=== PATIENT | female | born 1960 | race Caucasian/White ===

== ENCOUNTER 2019-06-10 13:11 | Inpatient (IN) | payer BC ==
[2019-06-10] MEDS ORDERED: Ondansetron INJ* 2 MG/ML VIAL IV ONE (13:24)
[2019-06-10] MEDS ORDERED: Morphine 4 MG/ML VIAL (1 ml) 4 MG/ML VIAL IV ONE ×2 (13:24→15:50)
[2019-06-10] MEDS ORDERED: NS 0.9% 1000 ML** 1,000 ML IV ONE (13:24)
--- NOTE | 2019-06-10 13:32 | ED ---
Abdominal Pain/Female - HPI Summary HPI Summary: A 58 y/o female presents to [facility] with a chief complaint of severe abdominal pain after her colonoscopy this morning. At triage she rated her pain as a 5/10 in severity. She reports that this is her first time having pain from a colonoscopy, claiming that she gets checked often because of a FHx of colon cancer. She was headed home after her colonoscopy because she was feeling better but then her pain started up again before she got home, and so she came to the ED. Dr. Haq, who did her colonoscopy, called ahead and requested that the patient get labs and a CT. She says that her pain "shoots up (her) vagina". - History of Current Complaint Chief Complaint: EDAbdPain Stated Complaint: COMPLICATIONS FROM COLONOSCOPY (TODAY) PER PT Time Seen by Provider: 06/10/19 13:24 Hx Obtained From: Patient Onset/Duration: Sudden Onset, Lasting Hours, Still Present Timing: Intermittent Episode Lasting - Pt says after her colonoscopy she had some pain that faded and then returned in her car ride home Severity Initially: Moderate Severity Currently: Moderate Pain Intensity: 5 Pain Scale Used: 0-10 Numeric Location: Diffuse Radiates: No Character: Other: - "Shoots up (her) vagina" Aggravating Factor(s): Nothing Alleviating Factor(s): Nothing Associated Signs and Symptoms: Negative: Fever Allergies/Adverse Reactions: Allergies Allergy/AdvReac Type Severity Reaction Status Date / Time codeine Allergy Severe severe Verified 06/10/19 14:50 vomiting, unaware of her surroundings PMH/Surg Hx/FS Hx/Imm Hx Endocrine/Hematology History: Denies: Hx Diabetes Cardiovascular History: Denies: Hx Hypertension, Hx Pacemaker/ICD Respiratory History: Denies: Hx Asthma History: Denies: Hx Renal Disease Sensory History: Denies: Hx Hearing Aid Psychiatric History: Reports: Hx Panic Disorder - MILD - Cancer History Hx Chemotherapy: No Hx Radiation Therapy: No - Surgical History Surgery Procedure, Year, and Place: RIGHT KN 36 YRS AGO, C-SECT, Infectious Disease History: No Infectious Disease History: Denies: Traveled Outside the [place] in Last 30 Days - Family History Known Family History: Positive: Diabetes - Social History Alcohol Use: Weekly Substance Use Type: Reports: None Smoking Status (MU): Never Smoked Tobacco Review of Systems Negative: Fever Positive: Abdominal Pain - post colonoscopy All Other Systems Reviewed And Are Negative: Yes Physical Exam - Summary Physical Exam Summary: GENERAL: Patient is a well-developed and nourished F who is lying comfortable in the stretcher. Patient is not in any acute respiratory distress. HEAD AND FACE: Normocephalic EYES: PERRLA, EOMI x 2. EARS: Hearing grossly intact. MOUTH: Oropharynx within normal limits. NECK: Supple, trachea is midline, no adenopathy, no JVD, no carotid bruit. CHEST: Symmetric, no tenderness at palpation LUNGS: Clear to auscultation bilaterally. No wheezing or crackles. CVS: Regular rate and rhythm, S1 and S2 present, no murmurs or gallops appreciated. ABDOMEN: Soft, TTP lower abdomen. Bowel sounds are normal. No abnormal abdominal pulsations. EXTREMITIES: Full ROM in all major joints, no edema, no cyanosis or clubbing. NEURO: Alert and oriented x 3. No acute neurological deficits. Speech is normal and follows commands. SKIN: Dry and warm : unremarkable Triage Information Reviewed: Yes Vital Signs On Initial Exam: Initial Vitals Temp Pulse Resp BP Pulse Ox 98.9 F 110 18 134/81 96 06/10/19 13:13 06/10/19 13:13 06/10/19 13:13 06/10/19 13:13 06/10/19 13:13 Vital Signs Reviewed: Yes Diagnostics - Vital Signs Vital Signs Temp Pulse Resp BP Pulse Ox 06/10/19 13:13 98.9 F 110 18 134/81 96 - Laboratory Result Diagrams: 06/10/19 13:38 06/10/19 13:38 Lab Statement: Any lab studies that have been ordered have been reviewed, and results considered in the medical decision making process. - Radiology CXR Radiology Interpretation Completed By: Radiologist Summary of Radiographic Findings: NO EVIDENCE FOR ACTIVE CARDIOPULMONARY DISEASE. ED physician has reviewed this imaging report. - CT abdomen/pelvis CT Interpretation Completed By: Radiologist Summary of CT Findings: No evidence of free air is noted. Scattered diverticula and a collapsed colon is noted. No other masses or fluid collections. are noted. Low density lesions in the right lobe of liver left lobe of liver may represent. cysts or hemangiomas. A small amount of free fluid is noted in the pelvis. ED physician has reviewed this imaging report. Re-Evaluation - Re-Evaluation First Eval Re-Evaluation Time: 17:14 Change: Unchanged Comment: Discussed results and plan for admission. Abdominal Pain Fem Course/Dx - Course Course Of Treatment: A 58 y/o female presents to [facility] with a chief complaint of severe abdominal pain after her colonoscopy this morning. The physical exam revealed TTP in lower abdomen and I did not see anything remarkable during the exam. In the ED course the patient was given Iohexol IV, Morphine IV, Zofran IV and sodium chloride IV. Blood work, chemistries and urines obtained. CXR impression: NO EVIDENCE FOR ACTIVE CARDIOPULMONARY DISEASE. Abdomen/pelvis CT impression: No evidence of free air is noted. Scattered diverticula and a collapsed colon is noted. No other masses or fluid collections. are noted. Low density lesions in the right lobe of liver left lobe of liver may represent. cysts or hemangiomas. A small amount of free fluid is noted in the pelvis. Because the patient started to spike a fever, the patient was given Tylenol PO and Flagyl and Cipro. I made Dr. Haq aware and he came into the ED and consulted with surgery. The patient will be admitted. Case discussed with hospitalist, Dr. Tatum. I discussed results with patient. The patient agrees with this plan - Diagnoses Provider Diagnoses: Postoperative abdominal pain - Provider Notifications Discussed Care Of Patient With: Sumeet Haq Time Discussed With Above Provider: 14:17 Instructed by Provider To: Other - He does want the patient to drink. Discharge - Sign-Out/Discharge Documenting (check all that apply): Patient Departure - admit Patient Received Moderate/Deep Sedation with Procedure: No - Discharge Plan Condition: Fair Disposition: ADMITTED TO [facility] Referrals: Alejandra Segovia DO [Primary Care Provider] - - Billing Disposition and Condition Condition: FAIR Disposition: Admitted to [facility] - Attestation Statements Document Initiated by Scribe: Yes Documenting Scribe: Jeet Gomez Provider For Whom Henrry is Documenting (Include Credential): Jama Vizcaino MD Scribe Attestation: Jeet Sanches, lionelibed for Jama Vizcaino MD on 06/10/19 at 1837. Scribe Documentation Reviewed: Yes Provider Attestation: The documentation as recorded by the Jeet jay accurately reflects the service I personally performed and the decisions made by me, Sue Vizcaino MD Status of Scribe Document: Viewed Consult Consult: At 17:[address] Haq with results and plan and will see the patient in the ED.
[2019-06-10 13:54] LABS: ABS Eosinophils 0.1 10^3/ul (0-0.6); ABS Lymphocytes 1.1 10^3/ul (1.0-4.8); ABS Monocytes 0.9 10^3/ul (0-0.8); ABS Neutrophils 7.5 10^3/ul (1.5-7.7); Eosinophil % 0.9 %; Hematocrit 40 % (35-47); Hemoglobin 13.3 g/dL (12.0-16.0); Lymphocyte % 11.4 %; Mean Corpuscular HGB Conc 33 g/dL (31-36); Mean Corpuscular Hemoglobin 30 pg (27-31); Mean Corpuscular Volume 92 fL (80-97); Mean Platelet Volume 7.8 fL (7.4-10.4); Nucleated Red Blood Cells % 0.1; Platelet Count 329 10^3/uL (150-450); Red Blood Count 4.39 10^6 /uL (3.70-4.87); Red Cell Distribution Width 13 % (10-15); White Blood Count 9.6 10^3/uL (3.5-10.8)
[2019-06-10 14:11] LABS: ALT 15 U/L (7-52); AST 16 U/L (13-39); Albumin/Globulin Ratio 1.4 (1-3); Alkaline Phosphatase 84 U/L (34-104); Anion Gap 5 mmol/L (2-11); BUN/Creatinine Ratio 14.3 (8-20); Blood Urea Nitrogen 10 mg/dL (6-24); C Reactive Protein 13.02 mg/L (<8.01); CO2 Carbon Dioxide 29 mmol/L (22-32); Calcium 9.1 mg/dL (8.6-10.3); Chloride 102 mmol/L (101-111); EGFR African American 104.4 (>60); EGFR Non-African American 86.2 (>60); Globulin 2.9 g/dL (2-4); Glucose 100 mg/dL (70-100); Potassium 3.9 mmol/L (3.5-5.0); Sodium 136 mmol/L (135-145); Total Protein 6.9 g/dL (6.4-8.9)
[2019-06-10 14:15] LABS: Activated Partial Thrombo Time 36.2 seconds (26.0-38.0); INR 1.27 (0.82-1.09)
[2019-06-10 14:48] LABS: Urine Appearance Clear; Urine Bacteria Absent (Absent); Urine Bilirubin Negative (Negative); Urine Blood 1+ (Negative); Urine Color Straw; Urine Glucose Negative (Negative); Urine Ketones Negative (Negative); Urine Nitrite Negative (Negative); Urine Protein Negative (Negative); Urine Red Blood Cell Trace(0-2/hpf) (Absent); Urine Specific Gravity 1.006 (1.010-1.030); Urine Urobilinogen Negative (Negative); Urine White Blood Cell Trace(0-5/hpf) (Absent)
[2019-06-10] MEDS ORDERED: Iohexol 300* (CONTRAST) 10 ML SDV IV ONE (16:48)
[2019-06-10] MEDS ORDERED: Acetaminophen TAB* 325 MG PO ONE (17:18)
[2019-06-10] MEDS ORDERED: metroNIDAZOLE IV 500 MG/100ML* 500 MG/100 ML BAG IVPB ONE (17:21)
[2019-06-10] MEDS ORDERED: Ciprofloxacin 400MG IVPREMIX(* 400 MG/200 ML BAG IVPB ONE (17:21)
[2019-06-10] MEDS ORDERED: Enoxaparin(*) 40 MG/0.4 ML SYR SUBCUT SCH (20:00)
[2019-06-10] MEDS ORDERED: Piperacillin/Tazobac ADVAN(*) 3.375 GM in NS 0.9% 100 ML* 100 ML IVPB ONE (20:40)
[2019-06-10] MEDS ORDERED: Acetaminophen TAB* 325 MG PO PRN (20:41)
[2019-06-10] MEDS ORDERED: Acetaminophen TAB* 325 MG ONE (20:43)
[2019-06-10] MEDS: Acetaminophen TAB* 325 MG PO SCH (20:46)
--- NOTE | 2019-06-10 20:46 | HP ---
CC: Dr. Segovia * HISTORY AND PHYSICAL: DATE OF ADMISSION: 06/10/19 PRIMARY CARE PROVIDER: Dr. Segovia. ATTENDING PHYSICIAN: Dr. Garcia * (dictated by TERRY Pandya). CHIEF COMPLAINT: Vaginal pain. HISTORY OF PRESENT ILLNESS: Ms. Loera is a 58-year-old female with a past medical history of chronic joint pain, depression and anxiety, who presented to the ER today with complaints of vaginal pain. She states she had colonoscopy this morning, which was accomplished without incident. When she awoke from colonoscopy, she complained of vaginal pain. She states that the pain is intermittent. Currently, her pain is 1/10. She describes the pain as ebbing and flowing but notes that she has pain with walking, sitting on the toilet, and increased abdominal pressure such as straining. She describes the pain as a pressure sensation. She notes that she "feels like something is being inserted into the vagina." She denies vaginal bleeding. She has no chest pain , shortness of breath, abdominal pain, nausea, vomiting, or diarrhea. She denies increased frequency of urination, dysuria, hematuria. She is not currently in a relationship and has not had intercourse in over 8 years. While in the emergency department, the patient received a full workup, which revealed CBC and CMP within normal limits. C-reactive protein of 13.02. Urinalysis negative. Chest x-ray showed no evidence of cardiopulmonary disease. Abdominal pelvic CT scan was obtained and showed no evidence of free air; there was scattered diverticula, collapsed colon. The patient received morphine, acetaminophen, 1 L normal saline bolus, metronidazole, and Cipro. The hospitalist team was asked to evaluate the patient for admission. PAST MEDICAL HISTORY: 1. Chronic joint pain. 2. Depression. 3. Anxiety. PAST SURGICAL HISTORY: ; multiple colonoscopies, last one today. HOME MEDICATIONS: 1. Bupropion SR 150 mg p.o. daily. 2. Calcium carbonate 1000 mg p.o. daily. 3. Cholecalciferol 2000 units p.o. daily. 4. Citalopram 40 mg p.o. daily. 5. Meloxicam 7.5 mg p.o. daily. 6. Propranolol 20 mg p.o. b.i.d. p.r.n. 7. Trazodone 50 mg p.o. at bedtime. 8. Zaleplon 5 mg p.o. at bedtime p.r.n. insomnia. DRUG ALLERGIES: CODEINE, severe vomiting; DOXYCYCLINE, swelling. FAMILY HISTORY: Father, colon cancer. Brother, colon cancer. Father of leukemia. Mother, non-Hodgkin's lymphoma. Negative for heart disease, CVA, diabetes mellitus. SOCIAL HISTORY: The patient does not smoke. She states she smoked some as a teen. She drinks approximately 2 drinks or less per week. She does not use any illicit drugs. She works in [employer] in a [employer]. She is . She has 1 child who lives with her. In the event that she is unable to make her own medical decision, she has appointed her sister or her ex- to be her surrogate decision makers. REVIEW OF SYSTEMS: A 10-point review of systems has been performed and all the pertinent positives and negatives are in the HPI. All other systems are negative. PHYSICAL EXAMINATION GENERAL: Ms. Loera is a well-developed, well-nourished, healthy appearing, middle aged woman who is lying on her left side in bed. She appears uncomfortable. She does not appear acutely ill. She is cooperative and appropriate. VITAL SIGNS: Temperature 100.0 temporal, heart rate 108, respiratory rate 22, oxygen saturation 97% on room air, blood pressure 116/62. HEENT: PERRL, EOMI, nonicteric sclerae. Hearing grossly intact. Oral mucous membranes are moist without lesions. RESPIRATORY: Symmetrical chest expansion without use of accessory muscles. LUNGS: Clear to auscultation bilaterally. There are no rhonchi, wheezes, or rubs. CARDIOVASCULAR: Regular rate and rhythm with S1, S2 present without murmurs, rubs, clicks, or gallops. There is no JVD. There is no peripheral edema. The radial and pedal pulses are palpable. ABDOMEN: Appears mildly distended. Bowel sounds noted throughout. The abdomen is soft. There is no guarding or rigidity. There is no tenderness to palpation throughout the abdomen except the right upper quadrant. MUSCULOSKELETAL: The patient is able to move all of her extremities. NEURO: The patient is awake. She is alert and oriented x3. She is able to move all of her extremities. DIAGNOSTIC STUDIES/LAB DATA: CBC within normal limits. Chemistry within normal limits. CRP 13.02. Urinalysis with 1+ blood. Chest x-ray, impression: No evidence for active cardiopulmonary disease. Abdomen/pelvis CT, impression: No evidence of free air is noted. Scattered diverticula and a collapsed colon is noted. No other masses or fluid collections are noted. Low density lesions in the right lobe of the liver, left lobe of liver may represent cyst or hemangiomas. A small amount of free fluid is noted in the pelvis. ASSESSMENT AND PLAN: Ms. Loera is a 58-year-old female with no significant past medical history, who presented to the ER today status post colonoscopy with vaginal pain. The patient will be admitted under observation for: 1. Vaginal pain, status post colonoscopy. The patient had sudden onset vaginal pain that is intermittent, mostly associated with movement after her colonoscopy today. Dr. Haq has been notified as he performed the colonoscopy. Surgery has also been consulted and notified. The patient will be made n.p.o. Surgery suggests for temperature greater than 100.5, she will be started on Cipro and metronidazole, both of which were initially given in the ER. Surgery suggests that we hold off on further antibiotics at this time. We will continue to monitor the patient. Gynecology has been consulted as well. 2. Depression and anxiety. Continue bupropion and citalopram. 3. FEN: NPO for the time being. 4. DVT prophylaxis: The patient will be placed on Lovenox 40 subcu. 5. Code status: Full code. TIME SPENT: Approximately 60 minutes were spent on this admission, greater than half that time was spent with the patient obtaining history, performing physical, and reviewing the plan of care. The case has been reviewed with my attending Dr. Garcia, who is in agreement with the plan of care. TERRY ABAD [id number]/[facility] #: [id number] MTDKike
--- NOTE | 2019-06-10 20:54 | CONS ---
GASTROENTEROLOGY CONSULTATION REPORT DATE: 06/10 CONSULTING PHYSICIAN: Jama Vizcaino MD REASON FOR CONSULTATION: Abdominal pain. HISTORY OF PRESENT ILLNESS: This 58-year-old woman came to the ER with lower abdominal pain after a morning colonoscopy done for a family history odf colon cancer. She had tolerated the prep well. During the colonoscopy a somewhat restricted sigmoid loop was encountered. The patient had told me that others had encountered some difficulty. The scope had gone through with what seemed like a normal amount of maneuvering for a somewhat difficult loop. After that, the cecum was reached with ease. Coming back, there was no particular difficulty and no stretching effect on the bowel or petechial changes on the right side or blood or i. Slow gradual looks were obtained diring withdrawal in the sigmoid colon and no injury seen. Retroflexion was unremarkable and was not difficult. Carbon dioxide was used and a fair amount of irrigation and suctioning About 15 and 20 minutes later in the recovery area, she complained of low abdominal or vaginal pain as if she was having dyspareunia . The pain seemed to wax and wane. At one point, she said she was substantially better and was drinking fluids and walking and went home accompanied by her sister. About an hour later, she called back and reported increased pain and was instructed to go to the emergency room. Her sister, who had come from out of town to help support her was also given the same message. She came to the emergency room and was initially afebrile at 98.9. Four hours later, she was 100.0. She felt warm. She continues to report low suprapubic area discomfort and as if the vagina was involved. It sometimes seems to increase with urination, although it is not stinging at the urethral opening. She has not had any vomiting or chills or passed gas. Her only oral intake since the colonoscopy was a single cracker and some water. White count was normal at 9.6. CT scan did not show any free air with a small amount of colon gas present. There is a small amount of free fluid, the upper end of the rectal area or near the vagina in the CT scan. The fluid density is indeterminant between water and blood. The patient is able to get up but has some pain with walking. PAST MEDICAL HISTORY: 1. Depression. 2. Hypertension. 3. Arthritic complaints - followed by Dr. Granado in the past. 4. Status post . 5. Status post laparoscopy for ovarian problems. MEDICATIONS: As an outpatient, trazodone 50 h.s., bupropion 150, citalopram 40 , Inderal 20 b.i.d., meloxicam 7.5 mg started 1 week ago. ALLERGIES: CODEINE - vomiting. 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 Her sister from [place] is a kitchen aide and came up to help her. REVIEW OF SYSTEMS: Her rheumatoid serologies here in February were negative. Celiac testing was negative 5 years ago. Has no history of seizures, syncope, palpitations, [place], cardiac problems, pulmonary disease, hemoptysis, hepatitis, jaundice. Her prior 3 colonoscopies have not had polyps. EXAM: She is a slightly flushed woman lying in the gurney in the ER. Temperature of 100.0, blood pressure 109/57, pulse 103. HEENT exam shows no icterus. She has no adenopathy. Her lungs are clear and heart sounds are regular. Breast and pelvic exams deferred. Heart sounds are regular. Her abdomen is flat, symmetric with minimal distant bowel sounds. There are no mechanical sounds. She is soft, generally nontender anteriorly. There is a little bit more deep tenderness on the right than the left. Perianal inspection is normal. Extremities show no edema. DIAGNOSTIC STUDIES/LAB DATA: CT scan - there is some extra fluid on axial images 65 to 75, but on review with the radiologist, it is said to be minimal. There is no free air. Dr. Davis from Surgery was consulted and saw the patient in the ER. He questions whether there could have been serosal injury and fluid leak. He favors observation and serial exams, and possibly repeat CT scan. IMPRESSION: Persisting pain after diagnostic colonoscopy with at this time no documented perforation. She will be admitted and observed. We discussed possible laparoscopy and surgery. Antibiotics had been given once and will be repeated if her temperature goes up over a 100 Fahrenheit. [id number]/[facility] #: [id number] MTDD
[2019-06-10] MEDS ORDERED: Zosyn per Pharmacy* NOTE FOLLOW UP SCH (21:00)
[2019-06-10] MEDS: traZODone TAB* 50 MG TAB PO SCH (21:04)
--- NOTE | 2019-06-10 21:44 | CONS ---
CONSULTATION REPORT: DATE OF CONSULT: 06/10/19 REASON FOR CONSULT: Consultation for vaginal pain. HISTORY OF PRESENT ILLNESS: The patient is a 58-year-old 3, para 1-0-2- 1, who comes in less than 24 hours status post colonoscopy with increasing temperatures and increasing lower abdominal pain since the colonoscopy was performed early a.m. 06/10/19. The patient on exam is complaining of a headache and states that she has vaginal pain worse with standing. Her evaluation today has included a CT scan, which revealed multiple diverticular disease and some free fluid in the lower pelvis. No air fluid levels are noted on CT scan. The colonoscopy report reviewed, unremarkable. Some difficulty navigating the sigmoid but no evidence of perforation during routine colonoscopy performed this a.m. The patient is healthy and received her routine well care through Dr. Segovia. PAST MEDICAL HISTORY: Noted for workup for joint pain. PAST SURGICAL HISTORY: In her youth had a right knee surgery and right wrist surgery and performed in 2001 for full-term delivery. PAST HOME OFFICE CLAIMS EXAMINER HISTORY: Unremarkable. Normal Pap smear was performed on 04/02/19. No STIs, is not sexually active. REVIEW OF SYSTEMS: The patient reports feeling chills and temperature elevation. GI: No diarrhea, no constipation, just finished colonoscopy this a.m. : No dysuria. Just reports vaginal pressure and pressure across her lower abdomen. Skin: Reports a rash on her right upper quadrant. Neuro: Positive headache. No seizures. PHYSICAL EXAM: Temp is 102, blood pressure 116/62, pulse is 108, respiratory rate is 22, O2 sat is 97. Constitutional: She is a pleasant female, somewhat disoriented to time. Complaining of headache. Abdomen is nontender. No hepatosplenomegaly. No rebound and no guarding appreciated on abdominal exam. Pelvic Exam: External genitalia without lesions. Vagina is no disruption of the vaginal mucosa. No evidence of stool within the vagina, atrophic appearing vaginal mucosa. Bimanual exam is uterus is nontender, cervix is nontender. The patient notes some discomfort and pressure feeling in the posterior aspect of the uterine wall. No adnexal masses appreciated and adnexa were nontender. Extremities are nontender. Skin: There is a diffuse macular rash involving the right chest wall approximately 7 cm in size. It is not symmetrical with no ulcerations. ASSESSMENT AND PLAN: The patient is a 58-year-old 3, para 1-0-2-1, who comes in less than 24 hours status post colonoscopy with fluid noted in the pelvic area on CT scan. No air fluid levels but severe lower abdominal pain now with spiking fevers. Cover the fevers with acetaminophen and begin broad- spectrum coverage. This is high suspicion for perforation of the colon. I am unsure of the etiology of this rash and I suspect that the headache is associated with the spiking of temperatures. This was reviewed with hospitalist and we will continue to follow the patient from a HOME OFFICE CLAIMS EXAMINER standpoint. [id number]/[facility] #: [id number] MTDD
[2019-06-10] MEDS ORDERED: Morphine 4 MG/ML VIAL (1 ml) 4 MG/ML VIAL IV PRN (21:59)
--- NOTE | 2019-06-10 21:59 | PN ---
Progress Note - Progress Note Date of Service: 06/10/19 Note: Pt developed tachycardia and fever. c/o frontal headache, abd pain at 2/10 pt is currently septic. Zosyn started. D/w DR. Davis Blood cx to be obtained, lactic acid reported normal On exam: AAOx3, in NAD Recp: CTA b/l CV: RRR, no murmur, Abd soft, mildly tender in b/l lower quadrants with no rebound, no guarding, BS+ skin: resolving mild rash under left breast-suspect dermatitis.
[2019-06-10] MEDS: NS 0.9% 1000 ML** 1,000 ML IV SCH (22:00)
[2019-06-10] MEDS ORDERED: Morphine 4 MG/ML VIAL (1 ml) 4 MG/ML VIAL ONE (22:03)
--- NOTE | 2019-06-10 23:07 | CONS ---
AMENDED REPORT NOW INCLUDES DATE OF CONSULT CONSULTATION REPORT: DATE OF CONSULT: 06/10/19 CHIEF COMPLAINT: Abdominal/vaginal pain. HISTORY OF PRESENT ILLNESS: This is a pleasant 58-year-old female had a colonoscopy today with Dr. Sumeet Haq, which was uneventful. There was no biopsy performed. He described some difficulty getting through the sigmoid colon. Immediately after the procedure, the patient complained of vaginal pain. This persisted, she tried to leave for home, however, due to the discomfort, she decided to come back to the emergency room. Workup there included CT scan of the abdomen and pelvis, which did not show any free air, small amount of fluid was noted in the pelvis. She was seen in the emergency room by Dr. Haq and also Gynecology and did a pelvic exam, internal exam/vagina appeared normal. She continued to have pain in the emergency room and was admitted to the floor by the medical service for observation. PAST MEDICAL HISTORY: Chronic joint pain, depression, anxiety. PAST SURGICAL HISTORY: section, multiple colonoscopies. MEDICATIONS: 1. Bupropion. 2. Calcium. 3. Cholecalciferol. 4. Citalopram. 5. Meloxicam. 6. Propranolol. 7. Trazodone. 8. Zaleplon. FAMILY HISTORY: Father had colon cancer. Brother had colon cancer. Father of leukemia. Mother had non-Hodgkin's lymphoma. SOCIAL HISTORY: She is a nonsmoker. REVIEW OF SYSTEMS: HEENT: She denies changes in vision, hearing, swelling. No sore throat. Cardiac: No chest pain. Pulmonary: No cough. GI: No blood per rectum. : No hematuria. Skin: Denies rash. Neuro: She has had a headache. Musculoskeletal: No extremity weakness. Psych: No change in anxiety /depression. PHYSICAL EXAM: General: Pleasant female, complaining of vaginal pain when she moves. She has had an elevated temperature, elevated heart rate. Her O2 sat is normal. HEENT: The sclerae are anicteric. Oral mucosa is pink and moist. Neck is supple. No JVD. Heart is regular. Lungs are clear anteriorly. Abdomen : Soft, nondistended, nontender. No guarding or rebound. Extremities: No clubbing, cyanosis, or edema. Neuro exam is grossly intact. DIAGNOSTIC STUDIES/LAB DATA: Laboratory studies show white blood cell count of 9.6, H and H of 13.3/40. Electrolytes are normal. C-reactive protein is elevated at 13.02. IMPRESSION: Post colonoscopy pain described as vaginal pain. At this point, she does not have signs of an acute surgical abdomen. There is no free air on our exam. Her abdomen is soft. She is comfortable while lying still. She was placed on empiric antibiotics by the medical service. Our plan will be for continued observation. If there are any signs of acute intraabdominal process, perforation, or other, she may need surgical exploration or intervention. This was explained to the patient. She was in agreement with the treatment plans and all questions were answered. [id number]/[facility] #: [id number] ABDULKADIR
[2019-06-11] MEDS: Acetaminophen TAB* 325 MG PO SCH (00:05)
[2019-06-11] MEDS: metroNIDAZOLE IV 500 MG/100ML* 500 MG/100 ML BAG IVPB SCH ×2 (00:05→06:18)
[2019-06-11] MEDS ORDERED: NS 0.9% 500 ML* 500 ML IV ONE (00:36)
[2019-06-11] MEDS: ZOSYN 3.375 GM Q8H per EXTENDED INFUSION IVPB SCH ×6 (01:47→16:29)
[2019-06-11] MEDS: Morphine INJ* 2 MG/ML 1 ML SYRINGE (TWO MG - NEW SYRINGE VERSION) IV PRN ×2 (01:50→07:58)
[2019-06-11] MEDS: NS 0.9% 1000 ML** 1,000 ML IV SCH ×3 (02:56→23:05)
[2019-06-11] MEDS ORDERED: Ciprofloxacin 400MG IVPREMIX(* 400 MG/200 ML BAG IVPB SCH (05:00)
--- NOTE | 2019-06-11 05:23 | PN ---
Progress Note - Progress Note Date of Service: 06/11/19 SOAP: Subjective: []comfortable Objective: [] Temp Pulse Resp BP Pulse Ox 100.1 F 91 17 97/51 94 06/11/19 02:27 06/11/19 02:27 06/11/19 04:23 06/11/19 02:27 06/11/19 02:27 Laboratory Last Values WBC 9.6 10^3/uL (3.5-10.8) 06/10/19 13:38 RBC 4.39 10^6 /uL (3.70-4.87) 06/10/19 13:38 Hgb 13.3 g/dL (12.0-16.0) 06/10/19 13:38 Hct 40 % (35-47) 06/10/19 13:38 MCV 92 fL (80-97) 06/10/19 13:38 MCH 30 pg (27-31) 06/10/19 13:38 MCHC 33 g/dL (31-36) 06/10/19 13:38 RDW 13 % (10-15) 06/10/19 13:38 Plt Count 329 10^3/uL (150-450) 06/10/19 13:38 MPV 7.8 fL (7.4-10.4) 06/10/19 13:38 Neut % (Auto) 78.2 % 06/10/19 13:38 Lymph % (Auto) 11.4 % 06/10/19 13:38 [place] % (Auto) 9.0 % 06/10/19 13:38 Eos % (Auto) 0.9 % 06/10/19 13:38 Baso % (Auto) 0.5 % 06/10/19 13:38 Absolute Neuts (auto) 7.5 10^3/ul (1.5-7.7) 06/10/19 13:38 Absolute Lymphs (auto) 1.1 10^3/ul (1.0-4.8) 06/10/19 13:38 Absolute Monos (auto) 0.9 10^3/ul (0-0.8) H 06/10/19 13:38 Absolute Eos (auto) 0.1 10^3/ul (0-0.6) 06/10/19 13:38 Absolute Basos (auto) 0.0 10^3/ul (0-0.2) 06/10/19 13:38 Absolute Nucleated RBC 0.0 10^3/ul 06/10/19 13:38 Nucleated RBC % 0.1 06/10/19 13:38 INR (Anticoag Therapy) 1.27 (0.82-1.09) H 06/10/19 13:38 APTT 36.2 seconds (26.0-38.0) 06/10/19 13:38 Sodium 136 mmol/L (135-145) 06/10/19 13:38 Potassium 3.9 mmol/L (3.5-5.0) 06/10/19 13:38 Chloride 102 mmol/L (101-111) 06/10/19 13:38 Carbon Dioxide 29 mmol/L (22-32) 06/10/19 13:38 Anion Gap 5 mmol/L (2-11) 06/10/19 13:38 BUN 10 mg/dL (6-24) 06/10/19 13:38 Creatinine 0.70 mg/dL (0.51-0.95) 06/10/19 13:38 Est GFR ( Amer) 104.4 (>60) 06/10/19 13:38 Est GFR (Non-Af Amer) 86.2 (>60) 06/10/19 13:38 BUN/Creatinine Ratio 14.3 (8-20) 06/10/19 13:38 Glucose 100 mg/dL (70-100) 06/10/19 13:38 Lactic Acid 1.0 mmol/L (0.5-2.0) 06/10/19 18:21 Calcium 9.1 mg/dL (8.6-10.3) 06/10/19 13:38 Total Bilirubin 0.60 mg/dL (0.2-1.0) 06/10/19 13:38 AST 16 U/L (13-39) 06/10/19 13:38 ALT 15 U/L (7-52) 06/10/19 13:38 Alkaline Phosphatase 84 U/L (34-104) 06/10/19 13:38 C-Reactive Protein 13.02 mg/L (<8.01) H 06/10/19 13:38 Total Protein 6.9 g/dL (6.4-8.9) 06/10/19 13:38 Albumin 4.0 g/dL (3.2-5.2) 06/10/19 13:38 Globulin 2.9 g/dL (2-4) 06/10/19 13:38 Albumin/Globulin Ratio 1.4 (1-3) 06/10/19 13:38 Lipase < 10 U/L (11.0-82.0) L 06/10/19 13:38 Urine Color Straw 06/10/19 14:17 Urine Appearance Clear 06/10/19 14:17 Urine pH 9.0 (5-9) 06/10/19 14:17 Ur Specific [place] 1.006 (1.010-1.030) L 06/10/19 14:17 Urine Protein Negative (Negative) 06/10/19 14:17 Urine Ketones Negative (Negative) 06/10/19 14:17 Urine Blood 1+ (Negative) A 06/10/19 14:17 Urine Nitrate Negative (Negative) 06/10/19 14:17 Urine Bilirubin Negative (Negative) 06/10/19 14:17 Urine Urobilinogen Negative (Negative) 06/10/19 14:17 Ur Leukocyte Esterase Negative (Negative) 06/10/19 14:17 Urine WBC (Auto) Trace(0-5/hpf) (Absent) 06/10/19 14:17 Urine RBC (Auto) Trace(0-2/hpf) (Absent) 06/10/19 14:17 Urine Bacteria Absent (Absent) 06/10/19 14:17 Urine Glucose Negative (Negative) 06/10/19 14:17 Assessment: []sp colonoscopy, pain, stable Plan: [] cont observation
[2019-06-11 05:56] LABS: ABS Lymphocytes 0.9 10^3/ul (1.0-4.8); ABS Neutrophils 15.6 10^3/ul (1.5-7.7); Hematocrit 35 % (35-47); Hemoglobin 11.4 g/dL (12.0-16.0); Lymphocyte % 5.4 %; Mean Corpuscular HGB Conc 33 g/dL (31-36); Mean Corpuscular Hemoglobin 30 pg (27-31); Mean Corpuscular Volume 91 fL (80-97); Mean Platelet Volume 7.8 fL (7.4-10.4); Platelet Count 272 10^3/uL (150-450); Red Blood Count 3.81 10^6 /uL (3.70-4.87); Red Cell Distribution Width 13 % (10-15); White Blood Count 17.6 10^3/uL (3.5-10.8)
[2019-06-11 06:07] LABS: BUN/Creatinine Ratio 12.7 (8-20); C Reactive Protein 98.26 mg/L (<8.01); Calcium 8.3 mg/dL (8.6-10.3); EGFR African American 102.7 (>60); EGFR Non-African American 84.8 (>60); Potassium 3.1 mmol/L (3.5-5.0)
[2019-06-11] MEDS: Famotidine IV* 10 MG/ML 2 ML (20 mg) IV SLOW PU SCH ×2 (08:06→21:25)
[2019-06-11] MEDS ORDERED: Ondansetron INJ* 2 MG/ML VIAL IV PRN (08:18)
[2019-06-11] MEDS ORDERED: CMCS: Meloxicam(NF) 7.5 MG TAB PO SCH (09:00)
[2019-06-11] MEDS ORDERED: buPROPion SR TAB.SR* 150 MG PO SCH (09:00)
[2019-06-11] MEDS ORDERED: Calcium Carbonate CHEW TAB* 500 MG (TUMS) PO SCH (09:00)
[2019-06-11] MEDS ORDERED: Citalopram TAB* 40 MG PO SCH (09:00)
[2019-06-11] MEDS ORDERED: Lactated Ringers 1000 ML Bag* 1,000 ML IV ONE (09:00)
--- NOTE | 2019-06-11 09:53 | PN ---
Subjective Date of Service: 06/11/19 Interval History: Patient is having severe abdominal pain with any movement. Severe Tenderness to Palpation in LLQ with voluntary guarding and no rebound. Has been having fevers and chills overnight. Patient denies CP, SOB. Slight dizziness on standing. Patient has nausea without vomiting. Patient is not passing gas, nor stool, no bleeding per rectum. Patient has no appetite. Family History: Unchanged from Admission Social History: Unchanged from Admission Past Medical History: Unchanged from Admission Objective Active Medications: Acetaminophen (Tylenol Tab*) 650 mg PO Q4H PRN PRN Reason: FEVER/PAIN Famotidine (Pepcid Iv*) 20 mg IV SLOW PU BID [facility] Last Admin: 06/11/19 08:06 Dose: 20 mg Piperacillin Sod/Tazobactam (Sod 3.375 gm/ Sodium Chloride) 100 mls @ 25 mls/ hr IVPB Q8H [facility] Last Admin: 06/11/19 08:04 Dose: 25 mls/hr Sodium Chloride (Ns 0.9% 1000 Ml) 1,000 mls @ 125 mls/hr IV PER RATE [facility] Last Admin: 06/11/19 02:56 Dose: 125 mls/hr Lactated Ringer's (Lactated Ringers 1000 Ml Bag*) 1,000 mls @ 1,000 mls/hr IV .BOLUS ONE Stop: 06/11/19 09:59 Last Admin: 06/11/19 09:07 Dose: 1,000 mls/hr Potassium Chloride (Potassium Chloride 20 Meq/100 Ml Ivpremix*) 20 meq in 100 mls @ 50 mls/hr IV Q2H [facility] Stop: 06/11/19 15:59 Morphine Sulfate (Morphine Inj (Syringe))*) 2 mg IV Q4H PRN PRN Reason: PAIN Last Admin: 06/11/19 07:58 Dose: 2 mg Ondansetron HCl (Zofran Inj*) 4 mg IV Q6H PRN PRN Reason: NAUSEA Pharmacy Consult (Zosyn Per Pharmacy*) 1 note FOLLOW UP .ZOSYN PER PHARMACY [facility] Trazodone HCl (Desyrel Tab*) 50 mg PO BEDTIME [facility] Last Admin: 06/10/19 21:04 Dose: 50 mg Vital Signs - 8 hr 07/25/19 07/25/19 07/25/19 01:50 01:56 02:27 Temperature 100.1 F Pulse Rate 91 Respiratory 20 21 Rate Blood Pressure 104/48 97/51 (mmHg) O2 Sat by Pulse 94 Oximetry 06/11/19 06/11/19 06/11/19 04:23 07:15 07:58 Temperature 99.2 F Pulse Rate 92 Respiratory 17 16 16 Rate Blood Pressure 88/49 (mmHg) O2 Sat by Pulse 90 Oximetry 06/11/19 08:00 Temperature Pulse Rate Respiratory 16 Rate Blood Pressure (mmHg) O2 Sat by Pulse Oximetry Oxygen Devices in Use Now: None Appearance: Patient is an ill appearing 58yo female who is laying in the bed in mild distress from pain. Eyes: No Scleral Icterus, PERRLA Ears/Nose/Mouth/Throat: NL Teeth, Lips, Gums, Clear Oropharnyx, Mucous Membranes Moist Neck: NL Appearance and Movements; NL JVP, Trachea Midline Respiratory: Symmetrical Chest Expansion and Respiratory Effort, Clear to Auscultation Cardiovascular: NL Sounds; No Murmurs; No JVD, RRR, No Edema, - - Tachycardia Abdominal: - - Diminished bowel sounds. Tenderness to palpation in LLQ without rebound, with voluntary guarding. No referred rebound. Lymphatic: No Cervical Adenopathy Extremities: No Clubbing, Cyanosis Skin: No Rash or Ulcers, No Nodules or Sclerosis Neurological: Alert and Oriented x 3, NL Sensation, NL Muscle Strength and Tone , - - CN II-XII intact. Result Diagrams: 06/11/19 05:32 06/11/19 05:31 Assess/Plan/Problems-Billing Assessment: Patient is a 58yo female with a PMH for Depression/Anxiety who was undergoing a colonoscopy and developed abdominal pain and is currently in septic shock and is being taken for exploratory surgery with concern for bowel perforation. - Patient Problems (1) Septic shock Current Visit: Yes Status: Acute Code(s): A41.9 - SEPSIS, UNSPECIFIED ORGANISM; R65.21 - SEVERE SEPSIS WITH SEPTIC SHOCK SNOMED Code(s): 82345220 Comment: - Patient has been developing worsening fevers, leukocytosis, tachycardia and decreasing blood pressures overnight. - Most recent BPs 2 hours apart had MAPs <65 despite having 2.5L fluid resuscitation - Transfer to ICU for possible need for vasopressors, continue fluids - Will be taken for exploratory surgery with Dr. Davis or general surgery. - Repeat Lactic Pending. (2) Bowel perforation Current Visit: Yes Status: Acute Code(s): K63.1 - PERFORATION OF INTESTINE ( NONTRAUMATIC) SNOMED Code(s): 24149957 Comment: - Concern for perforation related to colonoscopy. - No Free air on CT or repeat KUB - Further clarification with exploratory surgery (3) Anxiety Current Visit: Yes Status: Acute Code(s): F41.9 - ANXIETY DISORDER, UNSPECIFIED SNOMED Code(s): 60164031 Comment: - Hold meds with NPO status. (4) DVT prophylaxis Current Visit: Yes Status: Acute Code(s): Z29.9 - ENCOUNTER FOR PROPHYLACTIC MEASURES, UNSPECIFIED SNOMED Code(s): 787203870 Comment: - Held for surgery, Received 1 dose lovenox at 2200 on 06/10. Status and Disposition: Inpatient in the ICU, Transfer to [facility] [employer] [facility].
[2019-06-11] MEDS ORDERED: fentaNYL* 50 MCG/ML 2 ML VIAL (100 MCG VIAL) ONE ×2 (10:07→10:33)
[2019-06-11] MEDS ORDERED: Midazolam* 1 MG/ML 2 ML VIAL (2 MG) ONE (10:07)
[2019-06-11] MEDS ORDERED: Rocuronium* 10 MG/ML VIAL ONE (10:46)
[2019-06-11] MEDS ORDERED: Succinylcholine* 20 MG/ML 10 ML VIAL ONE (10:47)
[2019-06-11] MEDS ORDERED: Ondansetron INJ* 2 MG/ML VIAL ONE (10:47)
[2019-06-11] MEDS ORDERED: Phenylephrine 40 MCG/ML SYRINGE ONE (10:47)
[2019-06-11] MEDS ORDERED: Lidocaine 2% PF * 5 ML VIAL ONE (10:47)
[2019-06-11] MEDS ORDERED: Dexamethasone IV* 4 MG/ML 1 ML (4 MG) ONE (10:47)
[2019-06-11] MEDS ORDERED: Propofol* 10 MG/ML 20 ML BTL ONE (10:47)
[2019-06-11] MEDS ORDERED: Bacitracin OINTMENT* 0.5% 0.5 oz TUBE ONE (11:40)
[2019-06-11] MEDS ORDERED: Naloxone* 0.4 MG/ML 1 ML VIAL IV PRN (11:53)
[2019-06-11] MEDS: HYDROmorphone INJ1* 1 MG/ML SYRINGE IV PRN ×5 (11:54→12:14)
[2019-06-11] MEDS ORDERED: HYDROmorphone INJ1* 1 MG/ML SYRINGE ONE (11:57)
[2019-06-11] MEDS ORDERED: Ketorolac INJ* 30 MG/ML 1 ML VIAL ONE (12:06)
[2019-06-11] MEDS: Ketorolac INJ* 15 MG/ML 1 ML VIAL IV PUSH SCH ×3 (12:15→17:59)
[2019-06-11] MEDS ORDERED: Glycopyrrolate IV* 0.2 MG/ML 1 ML VIAL ONE (12:31)
[2019-06-11] MEDS ORDERED: Neostigmine Methylsulfate* 1 MG/ML 10 ML VIAL (1 mg/ml) ONE (12:31)
[2019-06-11] MEDS: KCL 20 MEQ/100 ML IVPREMIX* 20 MEQ/100 ML BAG IV SCH ×3 (13:34→19:53)
--- NOTE | 2019-06-11 14:26 | OP ---
CC: Dr. Sumeet Haq; Dr. Alejandra Segovia * DATE OF OPERATION: 06/10/19 - ROOM #ICU-10 DATE OF : 62 SURGEON: Dagoberto Davis MD. STEAM FLATTENER: Key Account Representative: Bailey Wright MD. Second Ad Operations Associate: Francisco Suggs MD. PRE-OP DIAGNOSIS: Abdominal pain, concern for enteric perforation. POST-OP DIAGNOSIS: Appendicitis/perforation of the tip of the appendix/ possible appendiceal tumor. OPERATIVE PROCEDURE: Exploratory laparotomy, appendectomy, washout, drainage of pelvis. INDICATIONS FOR PROCEDURE: A 58-year-old female status post colonoscopy yesterday, developed lower abdominal, mostly vaginal pain as described by the patient. She had a CT scan which appeared normal, other than a small amount of fluid and then in the pelvis. Original white count was normal. Her abdomen was essentially nontender early this morning. Laboratory studies showed significant elevation of her white blood cell count to 18,000, looking febrile through the night and became hypotensive. Decision was made for exploratory laparotomy. Risks of surgery included but not limited to bleeding, infection, injury to intraabdominal contents were explained to the patient. She seemed to understand and agreed to the procedure and all questions were answered and consent was signed. DESCRIPTION OF PROCEDURE: In the operating room in a supine position preoperative antibiotics have been given. After induction of general endotracheal anesthesia, the abdomen was prepped and draped in the sterile fashion. Time-out was performed indicating correct patient and correct procedure. Midline incision was made from the umbilicus down to the pubis, carried down to the subcutaneous tissues and Bovie cautery. The fascia was opened with Bovie cautery, peritoneal cavity was entered. A small amount of turbid fluid was noted. Small bowel was gently retracted out of the pelvis. The patient was placed in a slight Trendelenburg position. The sigmoid was followed down to the pelvis. The uterus was retracted. Some turbid/purulent fluid was noted down in the pelvis with small amounts, some fibrinous exudate was noted. Appendix was found to be stuck to the uterus down near the vaginal cuff. This was gently dissected free from the uterus. It appeared to be distended from the tip of the appendix with a perforation, fibrinous exudate was noted in this area, some epiploic appendages of the sigmoid that were near this. It almost appeared to be a tumor at the tip of the appendix, but it was hard to distinguish due to the inflammation. It was sent to pathology. After the base was clamped, divided, and tied with 0-Vicryl ties. The mesoappendix was tied with an 0-Vicryl suture ligation. Small bowel was run from the terminal ileum proximally for a distance. No abnormalities were noted. The sigmoid was run right up to the descending colon, it appeared normal. Transverse colon appeared normal. Cecum was dilated, but the cecum and the ascending colon otherwise appeared normal. The omentum appeared normal. No upper abdominal abnormalities were noted. She was taken out of the Trendelenburg position. A drain was placed down in the cul-de-sac and brought out through a separate stab incision in the left lower quadrant. The wound was irrigated copiously with warm saline and aspirated dry. The bowel was allowed to fall back in an anatomical position. The omentum was placed over the bowel. The fascia was closed with a running #1 PDS suture coming from either end of the incision. The wound was irrigated. The skin was closed with giorgio. Antibiotic ointment was applied. The drain was tied in with a 3-0 Silk. She tolerated the procedure well. She was extubated and taken to the recovery area in stable condition. [id number]/[facility] #: [id number] ABDULKADIR
[2019-06-11] MEDS: fentaNYL* 50 MCG/ML 2 ML VIAL (100 MCG VIAL) IV SLOW PU PRN ×4 (14:54→21:24)
[2019-06-11] MEDS ORDERED: KCL 20 MEQ/100 ML IVPREMIX* 20 MEQ/100 ML BAG ONE (19:53)
[2019-06-11] MEDS: traZODone TAB* 50 MG TAB PO SCH (21:25)
[2019-06-12] MEDS: Ketorolac INJ* 15 MG/ML 1 ML VIAL IV PUSH SCH ×3 (00:27→13:39)
[2019-06-12] MEDS: ZOSYN 3.375 GM Q8H per EXTENDED INFUSION IVPB SCH ×6 (00:27→17:22)
[2019-06-12] MEDS: fentaNYL* 50 MCG/ML 2 ML VIAL (100 MCG VIAL) IV SLOW PU PRN ×3 (04:20→13:39)
[2019-06-12 04:23] LABS: Hematocrit 34 % (35-47); Hemoglobin 11.4 g/dL (12.0-16.0); Mean Corpuscular HGB Conc 33 g/dL (31-36); Mean Corpuscular Hemoglobin 31 pg (27-31); Mean Corpuscular Volume 92 fL (80-97); Mean Platelet Volume 8.2 fL (7.4-10.4); Platelet Count 238 10^3/uL (150-450); Red Blood Count 3.73 10^6 /uL (3.70-4.87); Red Cell Distribution Width 13 % (10-15); White Blood Count 17.2 10^3/uL (3.5-10.8)
[2019-06-12 04:39] LABS: Albumin 2.8 g/dL (3.2-5.2); Albumin/Globulin Ratio 1.1 (1-3); BUN/Creatinine Ratio 14.1 (8-20); Calcium 8.5 mg/dL (8.6-10.3); EGFR African American 115.7 (>60); EGFR Non-African American 95.6 (>60); Globulin 2.6 g/dL (2-4); Potassium 3.7 mmol/L (3.5-5.0); Total Bilirubin 0.5 mg/dL (0.2-1.0); Total Protein 5.4 g/dL (6.4-8.9)
[2019-06-12] MEDS: NS 0.9% 1000 ML** 1,000 ML IV SCH ×3 (07:10→22:21)
[2019-06-12] MEDS: Famotidine IV* 10 MG/ML 2 ML (20 mg) IV SLOW PU SCH ×2 (07:51→21:14)
--- NOTE | 2019-06-12 09:15 | PN ---
Date of Service: 06/12/16 Critical Care Services: Patient had an uneventful evening following exploratory lap with incidental appendectomy. (No perforation identified) Abdominal pain is mild/moderate, and controlled with opiates and ketorolac. No flatus or BM yet. On zosyn for empiric Rx Vital Signs: Temp Pulse Resp BP SpO2 FiO2 97.2 F 71 18 96/52 94 NOTE: postop Tmax is 97.9 Physical Exam: Gen:Patient is alert, oriented, and appears comfortable Lungs:Clear Abdomen: Not distended. No bowel sounds. Extremities: Warm. No cyanosis or edema. Fluid Balance (Past 24 Hours): 06/11/19 06/12/19 06:59 06:59 Intake Total 3130 9632 Output Total 0 2660 Balance 3130 6972 Weight 168 lb 170 lb Intake: IV Fluids 3130 9143 LR 4400 NS 4228 abx 265 IVPB 489 KCl 192 abx 197 Oral 0 Output: ANANYA #1 95 Urine 0 700 Angulo 1860 Estimated Blood Loss 5 Other: # Bowel Movements 0 Labs: Laboratory Results - last 24 hr 06/11/19 06/11/19 06/12/19 09:30 13:19 04:12 WBC 17.2 H Hgb 11.4 L Hct 34 L MCV 92 Plt Count 238 MPV 8.2 Sodium Potassium Chloride Carbon Dioxide Anion Gap BUN Creatinine Est GFR ( Amer) Est GFR (Non-Af Amer) BUN/Creatinine Ratio Glucose POC Glucose (mg/dL) 138 H Lactic Acid 0.8 Calcium Total Bilirubin AST ALT Alkaline Phosphatase Total Protein Albumin Globulin Albumin/Globulin Ratio 06/12/19 04:12 Sodium 137 Potassium 3.7 Chloride 107 Carbon Dioxide 24 BUN 9 Creatinine 0.64 Glucose 123 H POC Glucose (mg/dL) Lactic Acid Calcium 8.5 L Total Bilirubin 0.50 AST 12 L ALT 10 Alkaline Phosphatase 61 Total Protein 5.4 L Albumin 2.8 L Globulin 2.6 Albumin/Globulin Ratio 1.1 Studies: None today Nutrition: NPO Impression: Satisfactory postop course. BP is on the low side, but patient is mentating well and urine output is good, so BP is adequate. Plan: Hold oral feedings until flatus or BM. Continue IV fluids and empiric antibiotic coverage with Zosyn. Critical Care Time: 30 minutes
--- NOTE | 2019-06-12 13:31 | PN ---
Progress Note - Progress Note Date of Service: 06/12/19 SOAP: Subjective:"gas pains";no nausea;sipping clears;no flatus [] Objective: Vital Signs Temp 97.6 F 06/12/19 12:00 Pulse 87 06/12/19 10:08 Resp 14 06/12/19 10:08 BP 105/53 06/12/19 10:08 Pulse Ox 93 06/12/19 10:08 Intake & Output 06/11/19 06/12/19 06/12/19 18:59 06:59 18:59 Intake Total 7573 2059 Output Total 1565 1095 180 Balance 6008 964 -180 Weight 170 lb 1.6 oz Intake: IV Fluids 7473 1670 LR 4400 NS 2558 1670 abx 265 IVPB 100 389 KCl 192 abx 197 Output: ANANYA #1 60 35 40 Urine 700 Mancia 800 1060 140 Estimated Blood Loss 5 Laboratory Results - last 24 hr 06/11/19 06/12/19 06/12/19 13:19 04:12 04:12 WBC 17.2 H RBC 3.73 Hgb 11.4 L Hct 34 L MCV 92 MCH 31 MCHC 33 RDW 13 Plt Count 238 MPV 8.2 Sodium 137 Potassium 3.7 Chloride 107 Carbon Dioxide 24 Anion Gap 6 BUN 9 Creatinine 0.64 Est GFR ( Amer) 115.7 Est GFR (Non-Af Amer) 95.6 BUN/Creatinine Ratio 14.1 Glucose 123 H POC Glucose (mg/dL) 138 H Calcium 8.5 L Total Bilirubin 0.50 AST 12 L ALT 10 Alkaline Phosphatase 61 Total Protein 5.4 L Albumin 2.8 L Globulin 2.6 Albumin/Globulin Ratio 1.1 lungs:clear anterior;heart:RRR;abd:quiet,nondistended,appropriate tenderness;ANANYA serosang;dressing intact and will be changed later per pt request;ext:nontender calves [] Assessment:POD#1 s/p ex lap,appendectomy,washout,drainage of pelvis;stable [] Plan:seen with jose eduardo Davis for transfer to floor,continue clear liquids,d/c mancia,continue IV abx;pt questions answered and plan discussed []
[2019-06-12] MEDS: Ketorolac INJ* 30 MG/ML 1 ML VIAL IV SCH ×2 (14:45→21:14)
--- NOTE | 2019-06-12 14:48 | PN ---
Progress Note - Progress Note Date of Service: 06/12/19 Note: 06/12/19 1430 Abdominal dressing changed,midline incision clean,dry and intact with giorgio,no erythema;ANANYA drain intact,exit site clean and dry,no erythema; redressed with sterile abd pad and 4x4's.C.[facility]leyMOUNTAIN GUIDE
[2019-06-12] MEDS: oxyCODONE/Acetamin 5/325 MG* TAB PO PRN ×2 (14:53→21:30)
[2019-06-12] MEDS: traZODone TAB* 50 MG TAB PO SCH (21:23)
[2019-06-12] MEDS: Citalopram TAB* 40 MG PO SCH (21:30)
[2019-06-13] MEDS: ZOSYN 3.375 GM Q8H per EXTENDED INFUSION IVPB SCH ×6 (00:18→17:08)
[2019-06-13] MEDS: Ketorolac INJ* 30 MG/ML 1 ML VIAL IV SCH ×4 (03:06→20:12)
[2019-06-13] MEDS: buPROPion SR TAB.SR* 150 MG PO SCH (06:15)
[2019-06-13 07:33] LABS: ABS Eosinophils 0.2 10^3/ul (0-0.6); ABS Lymphocytes 2.1 10^3/ul (1.0-4.8); ABS Monocytes 0.5 10^3/ul (0-0.8); ABS Neutrophils 7.1 10^3/ul (1.5-7.7); Eosinophil % 1.9 %; Hematocrit 35 % (35-47); Hemoglobin 11.9 g/dL (12.0-16.0); Lymphocyte % 21.1 %; Mean Corpuscular HGB Conc 34 g/dL (31-36); Mean Corpuscular Hemoglobin 31 pg (27-31); Mean Corpuscular Volume 92 fL (80-97); Mean Platelet Volume 8.5 fL (7.4-10.4); Platelet Count 267 10^3/uL (150-450); Red Blood Count 3.84 10^6 /uL (3.70-4.87); Red Cell Distribution Width 13 % (10-15)
[2019-06-13 07:52] LABS: Calcium 8.5 mg/dL (8.6-10.3); EGFR African American 104.4 (>60); EGFR Non-African American 86.2 (>60); Magnesium 1.9 mg/dL (1.9-2.7); Potassium 3.3 mmol/L (3.5-5.0)
[2019-06-13] MEDS: Famotidine IV* 10 MG/ML 2 ML (20 mg) IV SLOW PU SCH ×2 (08:49→20:26)
[2019-06-13] MEDS: oxyCODONE/Acetamin 5/325 MG* TAB PO PRN ×2 (09:20→21:05)
[2019-06-13] MEDS: NS 0.9% 1000 ML** 1,000 ML IV SCH (09:21)
[2019-06-13] MEDS ORDERED: NS 0.9% 1000 ML** 1,000 ML IV SCH (12:01)
--- NOTE | 2019-06-13 12:05 | PN ---
Progress Note - Progress Note Date of Service: 06/13/19 SOAP: Subjective: Had BM this morning Pain controlled with narcotic No N/V Objective: Temp Pulse Resp BP Pulse Ox 99.3 F 78 16 116/67 97 06/13/19 11:12 06/13/19 11:12 06/13/19 11:59 06/13/19 11:12 06/13/19 11:12 Intake & Output 06/11/19 06/12/19 06/13/19 06/14/19 06:59 06:59 06:59 06:59 Intake Total 3130 9632 2017 Output Total 0 2660 3490 1400 Balance 3130 6972 -1473 -1400 Weight 168 lb 170 lb 1.6 oz Intake: IV Fluids 3130 9143 1615 LR 4400 NS 4228 1615 abx 265 IVPB 489 222 KCl 192 abx 197 222 Oral 0 180 Output: ANANYA #1 95 175 Urine 0 700 M[place] 1860 3315 1400 Estimated Blood Loss 5 Other: Date of Last Bowel 06/13/19 Movement # Bowel Movements 0 1 1 Estimated Stool Amount Medium Medium PEX: Comfortable Lungs are clear Abd is soft and slightly distended. Dressing intact, ANANYA in place with SG fluid in bulb Bowel sounds are present, somewhat high pitched. Ext without edema Laboratory Results - last 24 hr 06/13/19 06/13/19 07:08 07:08 WBC 10.0 RBC 3.84 Hgb 11.9 L Hct 35 MCV 92 MCH 31 MCHC 34 RDW 13 Plt Count 267 MPV 8.5 Neut % (Auto) 71.3 Lymph % (Auto) 21.1 [place] % (Auto) 5.2 Eos % (Auto) 1.9 Baso % (Auto) 0.5 Absolute Neuts (auto) 7.1 Absolute Lymphs (auto) 2.1 Absolute Monos (auto) 0.5 Absolute Eos (auto) 0.2 Absolute Basos (auto) 0.0 Absolute Nucleated RBC 0.0 Nucleated RBC % 0.0 Sodium 140 Potassium 3.3 L Chloride 110 Carbon Dioxide 24 Anion Gap 6 BUN 7 Creatinine 0.70 Est GFR ( Amer) 104.4 Est GFR (Non-Af Amer) 86.2 BUN/Creatinine Ratio 10.0 Glucose 103 H Calcium 8.5 L Magnesium 1.9 Assessment: S/P exlap for abdominal pain S/P colonoscopy--appendectomy. No colon perforation , pathology with diverticulitis of appendix with apparent perforation. Plan: Full liquids D/C mancia Increase activity Plan ANANYA removal tomorrow. Discussed with patient
--- NOTE | 2019-06-13 17:59 | PN ---
Subjective Date of Service: 06/13/19 Interval History: Patient seen and examined. Abdominal pain controlled, no n/v, no fevers or chills. No acute overnight events. Family History: Unchanged from Admission Social History: Unchanged from Admission Past Medical History: Unchanged from Admission Objective Active Medications: Acetaminophen (Tylenol Tab*) 650 mg PO Q4H PRN PRN Reason: FEVER/PAIN Bupropion HCl (Wellbutrin Sr Tab*) 150 mg PO DAILY [facility] Last Admin: 06/13/19 06:15 Dose: 150 mg Citalopram Hydrobromide (Celexa Tab*) 40 mg PO BEDTIME [facility] Last Admin: 06/12/19 21:30 Dose: 40 mg Famotidine (Pepcid Iv*) 20 mg IV SLOW PU BID [facility] Last Admin: 06/13/19 08:49 Dose: 20 mg Piperacillin Sod/Tazobactam (Sod 3.375 gm/ Sodium Chloride) 100 mls @ 25 mls/ hr IVPB Q8H [facility] Last Admin: 06/13/19 17:08 Dose: 25 mls/hr Sodium Chloride (Ns 0.9% 1000 Ml) 1,000 mls @ 50 mls/hr IV PER RATE [facility] Ketorolac Tromethamine (Toradol Inj*) 30 mg IV Q6H [facility] Last Admin: 06/13/19 14:00 Dose: 30 mg Morphine Sulfate (Morphine Inj (Syringe))*) 2 mg IV Q4H PRN PRN Reason: PAIN Last Admin: 06/11/19 07:58 Dose: 2 mg Ondansetron HCl (Zofran Inj*) 4 mg IV Q6H PRN PRN Reason: NAUSEA Oxycodone/Acetaminophen (Percocet 5/325 Tab*) 1 tab PO Q3H PRN PRN Reason: PAIN - MODERATE Last Admin: 06/13/19 09:20 Dose: 1 tab Pharmacy Consult (Zosyn Per Pharmacy*) 1 note FOLLOW UP .ZOSYN PER PHARMACY [facility] Trazodone HCl (Desyrel Tab*) 50 mg PO BEDTIME [facility] Last Admin: 06/12/19 21:23 Dose: 50 mg Vital Signs - 8 hr 06/13/19 06/13/19 06/13/19 11:12 11:59 15:23 Temperature 99.3 F 98.6 F Pulse Rate 78 82 Respiratory 16 16 18 Rate Blood Pressure 116/67 113/61 (mmHg) O2 Sat by Pulse 97 96 Oximetry Oxygen Devices in Use Now: None Appearance: alert, NAD Eyes: No Scleral Icterus, PERRLA Ears/Nose/Mouth/Throat: NL Teeth, Lips, Gums, Mucous Membranes Moist Neck: NL Appearance and Movements; NL JVP, Trachea Midline Respiratory: Symmetrical Chest Expansion and Respiratory Effort, Clear to Auscultation Cardiovascular: NL Sounds; No Murmurs; No JVD, RRR Abdominal: NL Sounds; No Tenderness; No Distention Extremities: No Edema, No Clubbing, Cyanosis Skin: No Rash or Ulcers Neurological: Alert and Oriented x 3 Nutrition: Taking PO's Result Diagrams: 06/13/19 07:08 06/13/19 07:08 Microbiology and Other Data: Microbiology 06/10/19 22:08 Aerobic Blood Culture - Preliminary Blood Venous No Growth Day 2 Anaerobic Blood Culture - Preliminary No Growth Day 2 06/10/19 22:08 Aerobic Blood Culture - Preliminary Blood Venous No Growth Day 2 Anaerobic Blood Culture - Preliminary No Growth Day 2 06/12/19 17:25 Nasal Screen MRSA (PCR) - Final Nasal Mrsa Not Detected 06/10/19 14:17 Urine Culture - Final Urine No Growth (<1,000 CFU/mL) Assess/Plan/Problems-Billing Assessment: Patient is a 58yo female with a PMH for Depression/Anxiety who was undergoing a colonoscopy and developed abdominal pain and septic shock, now s/p ex lap and appendectomy. - Patient Problems (1) Diverticulitis Code(s): K57.92 - DVTRCLI OF INTEST, PART UNSP, W/O PERF OR ABSCESS W/O BLEED SNOMED Code(s): 584308581 Comment: - Patient with severe vaginal pain post colonoscopy with pathology diverticulitis of appendix with perforation of appendix and attachment to the uterus - No colonic perforation per OR note - Continue empiric zosyn - Afebrile, leukocytosis resolved (2) Septic shock Code(s): A41.9 - SEPSIS, UNSPECIFIED ORGANISM; R65.21 - SEVERE SEPSIS WITH SEPTIC SHOCK SNOMED Code(s): 60908414 Comment: - No perforation on CT, 2/2 perfed appendix per OR note - Was fluid resuscitated and transferred to ICU 06/11/19, downgraded on 06/12/19 - Sepsis resolved (3) Anxiety Code(s): F41.9 - ANXIETY DISORDER, UNSPECIFIED SNOMED Code(s): 66121807 Comment: - Home meds restarted (4) DVT prophylaxis Code(s): Z29.9 - ENCOUNTER FOR PROPHYLACTIC MEASURES, UNSPECIFIED SNOMED Code( s): 910451300 Comment: - Ambulate Status and Disposition: Inpatient, dispo as per surgery.
[2019-06-13] MEDS: Citalopram TAB* 40 MG PO SCH (20:13)
[2019-06-13] MEDS: traZODone TAB* 50 MG TAB PO SCH (20:13)
[2019-06-14] MEDS: Ketorolac INJ* 30 MG/ML 1 ML VIAL IV SCH ×4 (01:46→20:50)
[2019-06-14] MEDS: ZOSYN 3.375 GM Q8H per EXTENDED INFUSION IVPB SCH ×6 (01:46→17:31)
[2019-06-14] MEDS: Famotidine IV* 10 MG/ML 2 ML (20 mg) IV SLOW PU SCH ×2 (08:52→20:49)
[2019-06-14] MEDS: buPROPion SR TAB.SR* 150 MG PO SCH (08:53)
--- NOTE | 2019-06-14 11:23 | PN ---
Progress Note - Progress Note Date of Service: 06/14/19 SOAP: Subjective: Doing well Minimal pain Having BM's but no flatus-still feels distended Tolerating po Ambulating Objective: Temp Pulse Resp BP Pulse Ox 98.2 F 72 17 120/68 99 06/14/19 07:51 06/14/19 07:51 06/14/19 08:50 06/14/19 07:51 06/14/19 07:51 Intake & Output 06/12/19 06/13/19 06/14/19 06/15/19 06:59 06:59 06:59 06:59 Intake Total 9632 2016 3059 600 Output Total 2660 3490 5898 1999 Balance 7020 -0022 -2302 -1400 Weight 170 lb 1.6 oz Intake: IV Fluids 9143 1615 1157 LR 4400 NS 4228 1615 1157 abx 265 IVPB 489 222 202 ABX - ZOSYN 202 KCl 192 abx 197 222 Oral 180 1700 600 Output: ANANYA #1 95 175 98 Urine 700 4400 1999 Angulo 1860 3315 1400 Estimated Blood Loss 5 Other: Date of Last Bowel 06/13/19 06/14/19 Movement # Bowel Movements 1 1 Estimated Stool Amount Medium Small PEX: Comfortable-awake and alert Lungs are clear Abd is soft and slightly distended. Incision CDI, bowel sounds present- hyperactive and high pitched. Minimal incisional tenderness. ANANYA drain with small amount of yellow serous fluid in bulb. Ext without edema Assessment: POD# 3 s/p exlap, appendectomy- Ileus-resolving Plan: Soft diet D/C IVF ANANYA drain removed IV abx Increase activity
[2019-06-14] MEDS ORDERED: Heparin VIAL(*) 5000 UNITS/ML VIAL (FIVE THOUSAND) SUBCUT SCH (14:00)
[2019-06-14] MEDS: Citalopram TAB* 40 MG PO SCH (20:48)
[2019-06-14] MEDS: traZODone TAB* 50 MG TAB PO SCH ×2 (20:48→22:47)
[2019-06-14] MEDS ORDERED: ZALEPLON 5 MG PO PRN (21:00)
[2019-06-15] MEDS: ZOSYN 3.375 GM Q8H per EXTENDED INFUSION IVPB SCH ×4 (02:09→09:28)
[2019-06-15] MEDS: Ketorolac INJ* 30 MG/ML 1 ML VIAL IV SCH ×2 (02:09→08:08)
[2019-06-15 07:44] VITALS: BP 115/69
[2019-06-15] MEDS: buPROPion SR TAB.SR* 150 MG PO SCH (08:08)
[2019-06-15] MEDS: Famotidine IV* 10 MG/ML 2 ML (20 mg) IV SLOW PU SCH (08:08)
--- NOTE | 2019-06-15 08:50 | PN ---
Progress Note - Progress Note Date of Service: 06/15/19 SOAP: Subjective:ambulating,prudencio soft diet,passing liquid stools,no nausea or vomiting; urinary leakage [] Objective: Vital Signs Temp 98.8 F 06/15/19 07:43 Pulse 78 06/15/19 07:43 Resp 16 06/15/19 08:00 BP 115/69 06/15/19 07:43 Pulse Ox 97 06/15/19 07:43 Intake & Output 06/14/19 06/15/19 06/15/19 18:59 06:59 18:59 Intake Total 1320 720 Output Total 5550 2450 700 Balance -3392 -2348 -281 Intake: Oral 1320 720 Output: Urine 5550 2450 700 lungs:clear bilat;heart:RRR;abd:+bs,soft,nondistended;midline incision C/D and intact with giorgio,no erythema;exit site from previous ANANYA clean and dry,no infection;ext:nontender calves,no edema [] Assessment:POD#4 s/p exploratory laparotomy,appendectomy,doing well,stable for discharge;patient seen with Dr Davis [] Plan:Discharge home today,instructions reviewed,questions answered;office followup on 06/18/19;resume home medications;rx for oxycodone/acetaminophen 5/ 325mg and use of Ibuprofen and Tylenol discussed. []
--- NOTE | 2019-06-15 10:07 | DS ---
CC: Dr. Segovia * DISCHARGE SUMMARY: DATE OF ADMISSION: 06/10/19 DATE OF DISCHARGE: 06/15/19 ATTENDING SURGEON: Dagoberto Davis MD * (DICTATED BY LESLIE ALICEA NP) HOSPITAL COURSE: The patient is a 58-year-old female who was admitted by the hospitalist service on 06/10/19 through the [facility] Emergency Department with chief complaints of postcolonoscopy vaginal pain and pressure. She had a full workup, and her initial CBC and chemistry profile were within normal limits. A CAT scan of the abdomen and pelvis did not reveal any free air and there was a small amount of fluid in the pelvis. On 06/11/19, she became hypotensive and tachycardic and had severe abdominal pain with guarding, fever and chills, and leukocytosis. Dr. Davis consulted and advised exploratory laparotomy. The patient was taken to the operating room on and underwent exploratory laparotomy, appendectomy, washout, and drainage of pelvis with a Shreyas Phillip drain. The pathology report revealed diverticulitis with acute appendicitis and periappendicitis. Dr. Davis noted that the appendix was found to be stuck to the uterus down near the vaginal cuff. Postoperatively, she was maintained on Zosyn intravenously, IV fluids, and had an uneventful postoperative course. She required minimal pain medication, she was ambulating in the halls and using her Inspiron and her diet progressed to soft foods. She denied any nausea or vomiting and was having loose stools. She was also having intermittent urinary leakage, but no painful urination. PHYSICAL EXAMINATION: General: Well appearing, in no acute distress. Vital signs are stable. She is afebrile. O2 saturation on room air 97%. Lungs: Breath sounds bilaterally clear and equal. Heart: Regular rate and rhythm. No murmurs or rubs appreciated. Abdomen: Active bowel sounds, soft, and nondistended; the midline incision is clean, dry, and intact with surgical giorgio, no surrounding erythema; the exit site of the previous Shreyas Phillip drain is healing without any signs of infection. Extremities are nontender, and there is no edema. Her skin is warm and dry. CONDITION: Stable. IMPRESSION: Postop day 4 status post exploratory laparotomy and appendectomy with washout and drainage of pelvis. PLAN: Discharge home today. The patient was seen with Dr. Davis. Instructions were reviewed with the patient; she has a followup in our office on , 06/18/19; all of her medications were reviewed and she will continue her usual home medications; she will use ibuprofen and Tylenol as needed for mild pain; a prescription for oxycodone/acetaminophen 5/325 mg was provided and she was advised to stay on omeprazole [id number] 20 mg twice daily while she is on ibuprofen. All of her questions were answered. She was in agreement with the plan for discharge today. TIME SPENT: 45 minutes with greater than 50% in [id number] patient counselling and education. LESLIE ALICEA NP [id number]/CPS #: [id number]
== END 2019-06-15 12:20 | disposition home or self-care (01) | DRG 710 ==
LOC: ED 13:11 → MED 19:00 → OBSVTOIN 06-11 09:28 → INTOOBSV 06-11 09:28 → ICU 06-11 10:39 → SSU 06-12 14:24
PROVIDERS: ADMIT Internal Medicine; ATTEND Surgery
PROC: 0DTJ0ZZ Resection of Appendix, Open Approach (ICD-10-PCS; principal; 2019-06-10)
PROC: 0W9G00Z Drainage of Peritoneal Cavity with Drainage Device, Open Approach (ICD-10-PCS; 2019-06-10)
DX: A41.9 Sepsis, unspecified organism (principal); K35.32 Acute appendicitis with perforation, localized peritonitis, and gangrene, without abscess; K56.7 Ileus, unspecified; K57.00 Diverticulitis of small intestine with perforation and abscess without bleeding; F32.9 Major depressive disorder, single episode, unspecified; I10 Essential (primary) hypertension; M19.90 Unspecified osteoarthritis, unspecified site; G89.29 Other chronic pain; R21 Rash and other nonspecific skin eruption; G47.30 Sleep apnea, unspecified; F41.0 Panic disorder [episodic paroxysmal anxiety]; Z83.3 Family history of diabetes mellitus; Z88.6 Allergy status to analgesic agent; Z88.1 Allergy status to other antibiotic agents; Z80.0 Family history of malignant neoplasm of digestive organs; Z80.6 Family history of leukemia; Z80.7 Family history of other malignant neoplasms of lymphoid, hematopoietic and related tissues; Z72.89 Other problems related to lifestyle
CPT/HCPCS: 36415; 71045; 74019; 74177; 80048; 80053; 81003; 81015; 83605; 83690; 83735; 85025; 85027; 85610; 85730; 86140; 87040; 87086; 87641; 88304; 99285; A9270-GY; G0378; G8978-GP-CK; G8979-GP-CI; G8980-GP-CI; J0330; J0744; J1100; J1170; J1644; J1650; J1885; J2250; J2270; J2405; J2543; J2704; J2710; J3010; J3480; Q9967